=== PATIENT | male | born 1945 | race Caucasian/White ===

== ENCOUNTER → 2017-03-29 | Outpatient (CLI) | payer OTHER | LOC: BHFA 13:00 | PROVIDERS: ATTEND Internal Medicine Cardiovascular Disease | DX: I25.10 Atherosclerotic heart disease of native coronary artery without angina pectoris (principal) ==

== ENCOUNTER → 2017-04-30 | Outpatient (CLI) | payer OTHER | LOC: BHFA 13:30 | PROVIDERS: ATTEND Internal Medicine Cardiovascular Disease | DX: I25.10 Atherosclerotic heart disease of native coronary artery without angina pectoris (principal); R94.39 Abnormal result of other cardiovascular function study | CPT/HCPCS: 78452; 93017; A9500 ==

== ENCOUNTER 2018-05-07 21:02 | Observation (INO) | payer OTHER ==
[2018-05-07] MEDS ORDERED: NS 500 ML IV ONE (21:10)
[2018-05-07] MEDS ORDERED: ASPIRIN 81 MG CHEWABLE TAB PO ONE (21:10)
--- NOTE | 2018-05-07 21:10 | EDPHY ---
H & P Stated Complaint: L sided CP since 2029 Time Seen by Provider: 05/07/18 21:10 HPI/ROS: HPI CHIEF COMPLAINT: Chest pain HISTORY OF PRESENT ILLNESS: Patient very pleasant 73-year-old male to female transgender, on estrogen replacement, also has a family history of factor 5 Leiden deficiency, presents emergency room left-sided chest discomfort. Describes achy sensation. This started around 830 at night. She was in a resting seated position at a meeting somewhat of a stressful meeting and developed left-sided chest pain. It is worse when she takes deep breath in. States she can't fully take a deep breath in. Past Medical History: Denies significant medical history Past Surgical History: Denies significant surgical history Social History: Occasional THC, occasional alcohol, denies other illicit drugs or tobacco. Family History: Factor 5 Leiden ROS REVIEW OF SYSTEMS: 10 Systems were reviewed and negative with the exception of the elements mentioned in the history of present illness. Exam Constitutional triage nursing summary reviewed, vital signs reviewed, awake/ alert. Eyes normal conjunctivae and sclera, EOMI, PERRLA. HENT normal inspection, atraumatic, moist mucus membranes, no epistaxis, neck supple/ no meningismus, no raccoon eyes. Respiratory clear to auscultation bilaterally, normal breath sounds, no respiratory distress, no wheezing. Cardiovascular rate normal, regular rhythm, no murmur, no edema, distal pulses normal. Gastrointestinal soft, non-tender, no rebound, no guarding, normal bowel sounds, no distension, no pulsatile mass. Genitourinary no CVA tenderness. Musculoskeletal no midline vertebral tenderness, full range of motion, no calf swelling, no tenderness of extremities, no meningismus, good pulses, neurovascularly intact. Skin pink, warm, & dry, no rash, skin atraumatic. Neurologic awake, alert and oriented x 3, AAOx3, moves all 4 extremities equally, motor intact, sensory intact, CN II-XII intact, normal cerebellar, normal vision, normal speech. Psychiatric normal mood/affect. Heme/Lymph/Immune no lymphadenopathy. Differential Diagnosis: Differential diagnosis includes but is not limited to: ACS, atypical chest pain, pneumothorax, pneumonia, pulmonary embolism, aortic dissection, congestive heart failure, tumor, musculoskeletal pain, esophageal pain, GERD, peptic ulcer disease, pancreatitis Medical Decision Making: Plan for this patient IV establishment with blood draw , EKG, troponin, chest x-ray, patient's labs. Re-evaluation: EKG interpretation by me on record in [employer] system. Impression Time: 2111 : Sinus rhythm rate of 75, no signs of acute ischemia. 2238: Patient has an elevated D-dimer in the setting on left sign and increasing pleuritic pain when she takes deep breath in will proceed with CT angiogram of the chest. Reason for CT angiogram of the chest positive D-dimer, left-sided chest pain worse when deep inspiration. Updated patient grease for this plan. CT angiogram of the chest called to me by Dr. Miner this shows pulmonary emboli bilaterally. 12:08 a.m. Updated patient about pulmonary emboli. Started on heparin drip. Patient agrees for hospital admission and further care. He also received IV Dilaudid for acute pain control of his left-sided pleuritic pain when he takes a deep breath in. Plan for hospital admission for PE. Pulmonary emboli risk factors include hormone supplementation, recent air travel , and a genetic history in his family of Leiden deficiency. Source: Patient - Personal History Current Tetanus/Diphtheria Vaccine: Unsure - Medical/Surgical History Hx Asthma: No Hx Chronic Respiratory Disease: No Hx Diabetes: No Hx Cardiac Disease: No Hx Renal Disease: No Hx Cirrhosis: No Hx Alcoholism: No Hx HIV/AIDS: No Hx Splenectomy or Spleen Trauma: No Other PMH: denies - Social History Smoking Status: Never smoked Constitutional: Initial Vital Signs Temperature (C) 36.5 C 05/07/18 21:05 Heart Rate 73 05/07/18 21:05 Respiratory Rate 16 05/07/18 21:05 Blood Pressure 188/98 H 05/07/18 21:05 O2 Sat (%) 92 05/07/18 21:05 O2 Delivery Mode Nasal Cannula O2 (L/minute) 2 Allergies/Adverse Reactions: gluten Allergy (Verified 05/08/18 08:02) Home Medications: Medication Instructions Recorded Estradiol [Vivelle-Dot 0.05MG (*)] 0.05 mg TD SuWe@0800 05/08/18 Medical Decision Making - Data Points Laboratory Results: Laboratory Results 05/07/18 21:25 05/07/18 21:25 Medications Given: Acetaminophen (Tylenol) 650 mg PO Q4HRS PRN PRN Reason: Pain, Mild/Fever, Can Take PO Stop: 11/04/18 00:27 Last Admin: 05/08/18 20:08 Dose: 650 mg Heparin Sodium (Porcine) (Heparin 50 Units/Ml (Premix)) 500 mls @ 0 mls/hr IV CONT SATHISH; Per Protocol PRN Reason: Protocol Stop: 11/04/18 00:29 Last Admin: 05/08/18 02:07 Dose: 500 mls Oxycodone HCl (Oxycodone Ir) 5 - 10 mg PO Q3HRS PRN PRN Reason: Pain, Severe Able to Take PO Stop: 05/18/18 00:27 Last Admin: 05/08/18 20:03 Dose: 10 mg Discontinued Medications Aspirin (Aspirin) 324 mg PO EDNOW ONE Stop: 05/07/18 21:11 Last Admin: 05/07/18 21:31 Dose: 324 mg Heparin Sodium (Porcine) (Heparin Injection) 0 unit IVP EDNOW ONE Stop: 05/07/18 23:28 Last Admin: 05/07/18 23:50 Dose: 5,300 units Hydromorphone HCl (Dilaudid) 0.5 mg IVP EDNOW ONE Stop: 05/07/18 23:35 Last Admin: 05/07/18 23:44 Dose: 0.5 mg Hydromorphone HCl (Dilaudid) 1 mg IVP EDNOW ONE Stop: 05/08/18 00:53 Last Admin: 05/08/18 00:56 Dose: 1 mg Sodium Chloride (Ns) 500 mls @ 1,000 mls/hr IV EDNOW ONE PRN Reason: Protocol Stop: 05/07/18 21:39 Last Admin: 05/07/18 21:34 Dose: 500 mls Heparin Sodium (Porcine) (Heparin 50 Units/Ml (Premix)) 500 mls @ 0 mls/hr IV EDNOW ONE; Per Protocol PRN Reason: Protocol Stop: 05/07/18 23:28 Last Admin: 05/07/18 23:50 Dose: 500 mls Nitroglycerin (Nitrostat) 0.4 mg SL EDNOW ONE Stop: 05/07/18 21:24 Last Admin: 05/07/18 21:45 Dose: 0.4 mg Point of Care Test Results: Chemistry 05/07/18 21:30 POC Troponin I 0.02 ng/mL ng/mL (0.00-0.08) Departure - Departure Disposition: [facility] Inpatient Acute Clinical Impression: Pleurisy, Pulmonary infarct, Pleural effusion Pulmonary embolism Qualifiers: Pulmonary embolism type: other Chronicity: acute Acute cor pulmonale presence: without acute cor pulmonale Qualified Code(s): I26.99 - Other pulmonary embolism without acute cor pulmonale Condition: Fair
[2018-05-07] MEDS: NITROGLYCERIN 0.4 MG BTL SL ONE ×3 (21:32→21:45)
[2018-05-07 21:35] LABS: PLATELET COUNT 226 10^3/uL (150-400)
[2018-05-07 21:50] LABS: INR 0.85 (0.83-1.16); PROTIME(PATIENT) 11.3 SEC (12.0-15.0)
[2018-05-07] MEDS ORDERED: IOPAMIDOL (ISOVUE 370) 100 ML BTL IV ONE (22:24)
[2018-05-07] MEDS ORDERED: HEPARIN 10,000 UNIT/10 ML MDV (1,000 UNIT/ML) IVP ONE (23:27)
[2018-05-07] MEDS ORDERED: HEPARIN/DEXTROSE 500 ML IV ONE (23:27)
[2018-05-07] MEDS ORDERED: HYDROmorphONE/DILAUDID 2 MG/ML INJ IVP ONE (23:34)
[2018-05-08] MEDS ORDERED: ACETAMINOPHEN 325 MG TAB PO PRN (00:28)
[2018-05-08] MEDS ORDERED: ONDANSETRON DISINTEGRATING 4 MG TAB PO PRN (00:28)
[2018-05-08] MEDS ORDERED: ONDANSETRON 4 MG/2 ML VIAL IVP PRN (00:28)
[2018-05-08] MEDS ORDERED: HEPARIN/DEXTROSE 500 ML IV SCH (00:30)
[2018-05-08] MEDS ORDERED: HEPARIN 10,000 UNIT/10 ML MDV (1,000 UNIT/ML) IVP PRN (00:30)
[2018-05-08] MEDS ORDERED: HYDROmorphONE/DILAUDID 2 MG/ML INJ IVP ONE (00:52)
--- NOTE | 2018-05-08 01:56 | PDGENHP ---
History and Physical - Chief Complaint Chest pain - History of Present Illness 73 yo trans M->F on hormone therapy presents with L sided chest pain on inspiration. The pain started at 8 PM on night of admission. Th pain is worsened by deep inspiration. In the ED CTA notable for bilateral pulmonary emboli. He has normal HR and BP but requiring 2 L/min O2 to maintain O2 sats. Troponin and BNP are normal. 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 He had this tested due to several family members with blood clots. He has never had a blood clot in the past himself. As far as I can tell his only risk factor is hormone therapy. He denies recent surgery, trauma, or immobilization. He did go on a few, short flights this week to [place] and [place]. Case discussed with ED physician Dr. Dover; records reviewed and summarized above. History Information - Allergies/Home Medication List Allergies/Adverse Reactions: No Known Allergies Allergy (Unverified 05/07/18 21:06) Home Medications: NK [No Known Home Meds] 05/07/18 [Last Taken Unknown] I have personally reviewed and updated: family history, medical history - Past Medical History Additional medical history: M->F trans on hormone therapy - Surgical History Additional surgical history: Orchiectomy - Family History Additional family history: FVL, ++VTE - Social History Smoking Status: Never smoked Review of Systems Review of Systems: ROS: 10pt was reviewed & negative except for what was stated in HPI & below Physical Exam Physical Exam: Temp Pulse Resp BP Pulse Ox 37.3 C 84 18 138/74 H 90 L 05/07/18 23:34 05/08/18 00:38 05/08/18 00:38 05/08/18 00:38 05/08/18 00:38 O2 (L/minute) 2 Constitutional: no apparent distress, uncomfortable Eyes: PERRL, EOMI Ears, Nose, Mouth, Throat: moist mucous membranes, no oral mucosal ulcers Cardiovascular: regular rate and rhythym, no murmur, rub, or gallop Respiratory: no respiratory distress, clear to auscultation Gastrointestinal: normoactive bowel sounds, soft, non-tender abdomen Skin: warm, normal color Musculoskeletal: full muscle strength, no muscle tenderness Neurologic: AAOx3, CN II-XII Intact Psychiatric: interacting appropriately, not anxious Lab Data & Imaging Review 05/07/18 21:25 05/07/18 21:25 WBC 9.24 10^3/uL (3.80-9.50) 05/07/18 21: RBC 5.18 10^6/uL (4.18-5.33) 05/07/18 21:25 Hgb 16.9 g/dL (12.6-16.3) H 05/07/18 21:25 Hct 48.7 % (38.0-47.0) H 05/07/18 21:25 MCV 94.0 fL (81.5-99.8) 05/07/18 21: MCH 32.6 pg (27.9-34.1) 05/07/18 21: MCHC 34.7 g/dL (32.4-36.7) 05/07/18 21: RDW 13.1 % (11.5-15.2) 05/07/18 21: Plt Count 226 10^3/uL (150-400) 05/07/18 21: MPV 10.6 fL (8.7-11.7) 05/07/18 21: Neut % (Auto) 73.5 % (39.3-74.2) 05/07/18 21: Lymph % (Auto) 16.0 % (15.0-45.0) 05/07/18 21: Charlton % (Auto) 8.2 % (4.5-13.0) 05/07/18 21: Eos % (Auto) 1.6 % (0.6-7.6) 05/07/18 21: Baso % (Auto) 0.3 % (0.3-1.7) 05/07/18: Nucleat RBC Rel Count 0.0 % (0.0-0.2) 05/07/18: Absolute Neuts (auto) 6.78 10^3/uL (1.70-6.50) H 05/07/18 21:25 Absolute Lymphs (auto) 1.48 10^3/uL (1.00-3.00) 05/07/18 21: Absolute Monos (auto) 0.76 10^3/uL (0.30-0.80) 05/07/18 21:25 Absolute Eos (auto) 0.15 10^3/uL (0.03-0.40) 05/07/18 21:25 Absolute Basos (auto) 0.03 10^3/uL (0.02-0.10) 05/07/18 21:25 Absolute Nucleated RBC 0.00 10^3/uL (0-0.01) 05/07/18 21: Immature Gran % 0.4 % (0.0-1.1) 05/07/18 21: Immature Gran # 0.04 10^3/uL (0.00-0.10) 05/07/18 21: PT 11.3 SEC (12.0-15.0) L 05/07/18 21:25 INR 0.85 (0.83-1.16) 05/07/18 21: APTT 24.2 SEC (23.0-38.0) 05/07/18 21:25 D-Dimer 2.02 ug/mLFEU (0.00-0.50) H 05/07/18 21:25 Sodium 138 mEq/L (135-145) 05/07/18 21:25 Potassium 4.0 mEq/L (3.5-5.2) 05/07/18 21:25 Chloride 102 mEq/L (97-110) 05/07/18 21:25 Carbon Dioxide 25 mEq/l (22-31) 05/07/18 21:25 Anion Gap 11 mEq/L (6-14) 05/07/18 21:25 BUN 22 mg/dL (7-23) 05/07/18 21:25 Creatinine 0.7 mg/dL (0.6-1.0) 05/07/18 21:25 Estimated GFR > 60 05/07/18 21:25 Glucose 102 mg/dL (70-100) H 05/07/18 21:25 Calcium 9.3 mg/dL (8.5-10.4) 05/07/18 21:25 POC Troponin I 0.02 ng/mL (0.00-0.08) 05/07/18 21:30 NT-Pro-B Natriuret Pep 80 pg/mL (0-125) 05/07/18 21:25 Imaging Review: Imaging Impressions Chest X-Ray 05/07/18 21:11 Impression: Small left pleural effusion with indistinct basilar opacities suggesting atelectasis, left greater than right. Chest/Thorax CTA 05/07/18 22:20 Impression: 1. Bilateral segmental and subsegmental pulmonary emboli. 2. Basilar atelectasis/infarcts with a tiny left effusion. 3. 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 4. Additional findings as above. Findings discussed with Dorian Milligan MD 05/07/2018 at 23:10. Visualized and Interpreted EKG results: Yes EKG Interpretation: Positive for: normal sinsus rhythm Assessment & Plan Assessment: 73 yo trans M->F on hormone therapy presents with pulmonary emboli. Plan: 1. Bilateral pulmonary emboli - CTA demonstrates bilateral segmental and subsegmental pulmonary emboli. Troponin and BNP negative. Hemodynamically stable but mildly hypoxic. Risk factors and hormone therapy and FVL trait. He denies recent surgery, trauma, or immobilization. - Observe in PCU - Monitor on telemetry - Heparin gtt started - TTE ordered 2. Hypoxia - 2/2 above; no respiratory distress at this time. - O2 PRN to maintain O2 sats>89% - Pain control and IS to minimize atelectasis from splinting 3. Hormone therapy - Likely ok to continue once anticoagulation regimen established Diet - Regular Code - Full Ppx - Heparin gtt Dispo - Admit under observation status
[2018-05-08 06:47] LABS: INR 1.04 (0.83-1.16); PROTIME(PATIENT) 13.2 SEC (12.0-15.0)
[2018-05-08 06:49] LABS: PLATELET COUNT 176 10^3/uL (150-400)
[2018-05-08] MEDS: oxyCODONE IR 5 MG TAB PO PRN ×3 (15:30→20:03)
--- NOTE | 2018-05-09 07:53 | CPEKG ---
Test Reason : OPEN Blood Pressure : / mmHG Vent. Rate : 075 BPM Atrial Rate : 074 BPM P-R Int : 133 ms QRS Dur : 069 ms QT Int : 375 ms P-R-T Axes : 046 055 049 degrees QTc Int : 419 ms Sinus rhythm Left atrial enlargement Confirmed by Dorian Milligan ([id number]) on 05/09/2018 7:52:40 AM Referred By: Dorian Milligan Confirmed By:Dorian Milligan
[2018-05-09 08:12] VITALS: BP 127/71
[2018-05-09] MEDS ORDERED: RIVAROXABAN 15 MG TAB PO SCH (10:26)
--- NOTE | 2018-05-09 12:11 | ECHO ---
[email or web address] [address] Main: [phone] Echocardiography Examination Transthoracic Name: CALI FOSS MR#: [id number] Study Date: 05/08/2018 Study Time: 08:33 AM Date of : 1945 Age: 73 year(s) Height: 172.7 cm (68 in.) Weight: 66.23 kg (146 lb.) BSA: 1.79 m2 Gender: Female Examination: Echo Contrast: Image Quality: Good Rhythm: Normal sinus rhythm Heart Rate: 56 bpm BP: 109 mmHg/64 mmHg Indication: PE Procedure Staff Referring Physician: First Line Supervisor: Chance Arevalo RDCS Reading Physician: Cali Tadeo MD Requesting Provider: Indication: PE Measurements Chambers AV/MV Label Value Normal Value Label Value Normal Value EF upper range (%) 70 % AV PGmax 9 mmHg IVSd, 2D 0.8 cm (0.6cm - 1.1cm) AV Vmax, Caliper 1.52 m/s LVDd, 2D 5.3 cm (3.9cm - 5.3cm) SEAN (continuity eq. 2.3 cm2 LVDs, 2D 3.3 cm (2.1cm - 4cm) Vmax) LVEF, 2D 67 % (54% - 74%) MV A Vmax 0.8 m/s LVOT PGmax 5 mmHg MV E' lateral 0.08 m/s LVOT Vmax 1.13 m/s (0.7m/s - 1.1m/s) MV E' mean 0.08 m/s LVOTd 2 cm (1.8cm - 2cm) MV E' septal 0.09 m/s LVPWd, 2D 0.8 cm MV E Vmax 0.67 m/s LA Area, A2C 18.4 cm2 (0cm2 - 20cm2) MV E/A 0.84 LA Volume, A2C 51 ml (22ml - 52ml) MV E/E' lateral 7.9 LAD Index, 2D 2.18 cm/m2 MV E/E' mean 7.88 LADs, 2D 3.9 cm (2.7cm - 3.8cm) MV E/E' septal 7.8 (0.45 - 1.25) Additional Vessels TV/PV Label Value Normal Value Label Value Normal Value AoRoot, MM 2.5 cm (2.2cm - 3.7cm) RA Pressure 5 mmHg RVSP 37 mmHg TR Pmax 32 mmHg TR Vmax 2.82 m/s PV PGmax 4 mmHg Patient: CALI FOSS Study Date: 05/08/2018 Page 1 of 3 08:33 AM PV Vmax, Caliper 0.99 m/s (0.6m/s - 0.9m/s) Conclusions There are no prior studies availabel for comparison in the [employer] system. The right heart appears to be funcitoning relatively normally without right heart dilation or significant elevation in the measured PA pressure post pulmonary embolus. Left Ventricle: Left ventricle is normal in size. Normal global systolic left ventricular function. There is no regional wall motion abnormalities. Left ventricular diastolic function parameters are normal. No LV hypertrophy. Right Ventricle: There is no septal flattening consistent with RV volume/pressure overload.. Normal size right ventricle. Right ventricular wall thickness is normal. Right ventricular systolic function is normal. Left Atrium: The left atrium is normal in size. Right Atrium: The right atrium is normal in size. Aortic Valve: Aortic leaflets exhibit mild calcification. Tricuspid Valve: Mild tricuspid regurgitation. Findings Left Ventricle: Left ventricle is normal in size. Normal global systolic left ventricular function. The ejection fraction, measured by 2D, is 67 %. Left ventricle wall thickness is normal. There is no regional wall motion abnormalities. Left ventricular diastolic function parameters are normal. No LV hypertrophy. Right Ventricle: There is no septal flattening consistent with RV volume/pressure overload.. Normal size right ventricle. Right ventricular wall thickness is normal. Right ventricular systolic function is normal. Left Atrium: The left atrium is normal in size. The LA ESV index (BP) is 29.1 ml/m2 Right Atrium: The right atrium is normal in size. Mitral Valve: No significant mitral regurgitation. No mitral valve stenosis. There is no mitral calcification. Aortic Valve: No aortic valve regurgitation. There is no aortic stenosis. Aortic leaflets exhibit mild calcification. The aortic valve is trileaflet. Tricuspid Valve: Mild tricuspid regurgitation. Right Ventricular systolic pressure is measured at 37 mmHg. Pulmonary artery pressure normal. Pulmonic Valve: Patient: CALI FOSS Study Date: 05/08/2018 Page 2 of 3 08:33 AM Pulmonic leaflets are normal in appearance and function. No pulmonic valve regurgitation is evident. Aorta: The aorta is normal. The aortic root size in M-mode measures 2.5 cm. Aorta Measurements AoRoot, MM is 2.5 cm. Pericardium: No pericardial effusion. Exam Details Procedure Ordered: Echo Procedure Status: Routine study Image Quality: Good Facility Location: Cardiac Echo 1 (No Signature Object) Patient: CALI FOSS Study Date: 05/08/2018 Page 3 of 3 08:33 AM [id number]
--- NOTE | 2018-05-09 12:31 | ASDISCHSUM ---
Discharge Information Plan Status:Home with No Needs Medically Cleared to Leave:05/09/2018 Discharge Date:05/09/2018 12:10 PM CM D/C Disposition:Home, Routine, Self-Care ADT D/C Disposition:Home, Routine, Self-Care Projected Discharge Date:05/09/2018 12:10 PM Transportation at D/C: Discharge Delay Reason: Follow-Up Date:05/09/2018 12:10 PM Discharge Slot: Final Diagnosis: Placement Information Patient Contact Information Contact Name:DONNA Relationship: Address:[address] [place] Work Phone: City:[place] Alternate Phone: State/Zip Code:[place] [address] Email: Financial Information Financial Class:Medicare Primary Plan Desc:MEDICARE OUTPATIENT Primary Plan Number:[id number] Secondary Plan Desc:RUTHY ADAMES Secondary Plan Number:[id number] Assessment Information LACE LACE Length of stay for Answers: 1 day current admission Comorbidities - select Answers: Other Notes: Factor V Leiden all that apply # of Emergency department Answers: 1-2 visits in the last 6 months Score: 3 Date Signed: 05/09/2018 12:31 PM Electronically Signed By:Luanne Sorensen RN Intervention Information Intervention Type:*BLANCA-Signed Date of Service:05/08/2018 10:21 AM Patient Type:Observation Staff Member:Cecelia Coronel Hours: Discipline: Severity: Comment:
--- NOTE | 2018-05-09 19:57 | GDS ---
[f rep st] DISCHARGE SUMMARY DISCHARGE DIAGNOSES: 1. Acute pulmonary embolus. 2. Transgender female. 3. Factor V Leiden heterozygote. HISTORY: The patient is a 73-year-old, transgender female on hormone therapy with estrogen. She demar mullen is a known heterozygote for factor V Leiden. She presented with left-sided pleuritic chest pain an d was found to have bilateral pulmonary emboli. She initially required 2 L of oxygen but has now bee n weaned to room air. She has a strong family history of blood clots; hence, her previous testing fo r factor V Leiden mutation. She never had a blood clot personally. Her estrogen therapy is contribu ting. She was admitted and placed on IV heparin drip and she stabilized nicely. She is willing to hold est rogen therapy in the short term. She will discharge on Xarelto. She will discuss the risk-benefit r atio of ongoing estrogen therapy with her starting gate driver who specializes in trans medicine. She demar mullen is considering an outpatient hematology consultation. DISCHARGE INSTRUCTIONS: 1. Please see computerized record for full detailed list. New medications: Xarelto 15 mg p.o. twic e daily for 21 days and then reduce to 20 mg p.o. daily thereafter. 2. Discuss with your starting gate driver the risk/benefit ratio of resuming estrogen therapy. Greater than 30 minutes' time was spent arranging this discharge. Patient was seen and examined by ronda amaro on the day of discharge. /[id number]
== END 2018-05-09 12:10 | disposition home or self-care (01) ==
LOC: F2W 05-08 01:37
PROVIDERS: ADMIT Student in an Organized Health Care Education/Training Program; ATTEND Student in an Organized Health Care Education/Training Program
DX: I26.99 Other pulmonary embolism without acute cor pulmonale (principal); D68.2 Hereditary deficiency of other clotting factors
CPT/HCPCS: 71045; 71275; 93005; 93306; 96365; 96366; 96375; 96376; 99285; G0378; J1170; J1644; Q9967; 84484-ER; 85520-90